=== PATIENT | male | born 1960 | race Caucasian/White ===

== ENCOUNTER 2024-01-22 14:20 | Emergency (ER) | payer OTHER, SELFPAY ==
[2024-01-22 14:24] VITALS: BP 137/89
--- NOTE | 2024-01-22 15:32 | ED.SKININJ ---
HPI-Injury
General
Chief Complaint: Skin Surface Trauma
Source: patient
Exam Limitations: none
Time Seen by Provider: 01/22/24 15:09
Nursing documentation reviewed up to this point in time: agreed with
History of Present Illness-Injury
Is this injury a work related problem?: Yes
Is pt an associate of [facility]?: No
Initial Injury comments:
Accidentally cut finger tips with saw. Has lacerations to left fingertips 2,3,4. Injury occurred just [employer]
Past History
Past History
ED Past Medical History: HTN, Hypercholesterolemia and Other
Social History
Tobacco: Former smoker
Personal:
Living: with family
Employment: Not employed
Review of Systems
Review of Systems
Allergies reviewed?: Yes
All Other Systems: ROS reviewed and negative except as documented in HPI and ROS
Constitutional: Reports no symptoms
Musculoskeletal: Reports joint pain (pain to fingertips 2,3,4)
Skin: Reports other (laceration to fingertips 2,3,4)
Neurological: Reports no symptoms
Psychiatric: Reports no symptoms
Skin Exam
Laceration
Left Distal Second Finger:
Length in cm: 1.5
Orientation: horizontal
Type of Laceration: simple
Any active bleeding?: no active bleeding
Distal skin color and temperature: normal-warm & good color
Normal distal neurovascular exam: Yes
Range of motion: full
Left Distal Third Finger:
Length in cm: 2
Orientation: horizontal
Type of Laceration: simple
Any active bleeding?: low grade venous oozing
Distal skin color and temperature: normal-warm & good color
Normal distal neurovascular exam: Yes
Range of motion: full
Left Distal Fourth Finger:
Length in cm: 1.5
Orientation: horizontal
Type of Laceration: simple
Any active bleeding?: no active bleeding
Distal skin color and temperature: normal-warm & good color
Normal distal neurovascular exam: Yes
Range of motion: full
Phy Exam
General Physical Exam
General Presentation: well appearing and mild distress
General age: appears stated age
General Skin: warm and dry
General Habitus: normal
General Mental: alert
Musculoskeletal Exam
Musculoskeletal Exam: full ROM and neuro vasc intact
Skin Exam
Skin Exam: normal color, warm/dry, no rash and other (Lacerations to left distal finger tips 2,3,4)
Psychiatric Exam
Psychiatric Exam: normal mood/affect
Course
Orders/Labs/Results
Orders:
Orders
01/22/24 15:31
Hand, Left 3 View [CR Hand - Left Min 3 Views] Urgent
Comment:
Reason For Exam: attn finger tips 2,3,4
01/22/24 16:54
Amoxicillin 875 mg/Clav 125 mg [Augmentin 875 mg/125 mg] 1 tablet PO NOW STA
Vital Signs
Initial and Last Documented VS:
Initial Vital Signs
Temp Pulse Resp BP Pulse Ox
98.4 F 75 18 137/89 98
01/22/24 14:24 01/22/24 14:24 01/22/24 14:24 01/22/24 14:24 01/22/24 14:24
Last Documented Vital Signs
Temp Pulse Resp BP Pulse Ox
98.4 F 75 18 137/89 98
01/22/24 14:24 01/22/24 14:24 01/22/24 16:03 01/22/24 14:24 01/22/24 14:24
Procedures
Laceration Closure
Left Distal Second Finger:
Status of Wound: clean
Description of Wound Edges: sharp and ragged
Preparation: cleaned with saline and cleaned with Betadine
Anesthesia: 1% Lidocaine and Digital-Regional
Revision/Debridement: routine- no revision
Wound exploration: extensive cleaning of contaminated wound
Type of Closure: single layer closure
Skin Closure Material: 5-0 prolene
Left Distal Third Finger:
Status of Wound: clean
Description of Wound Edges: ragged
Preparation: cleaned with saline and cleaned with Betadine
Anesthesia: 1% Lidocaine and Digital-Regional
Revision/Debridement: routine- no revision
Wound exploration: explored to base- no FB
Type of Closure: single layer closure
Skin Closure Material: 5-0 prolene
Left Distal Fourth Finger:
Status of Wound: clean
Description of Wound Edges: sharp
Preparation: cleaned with saline and cleaned with Betadine
Anesthesia: 1% Lidocaine and Digital-Regional
Revision/Debridement: routine- no revision
Wound exploration: explored to base- no FB
Type of Closure: single layer closure
Skin Closure Material: 5-0 prolene
*Radiology
Radiology exam reviewed: radiology read reviewed
*Pulse Oximetry
Patient hypoxic: no
*Critical Care Note
Total Time (30-74mins, 75-104mins- exclusive of procedures): Not Applicable
ED Attending Note
-
Portions of this chart may have been created with voice recognition software.� Occasional wrong word or��sound alike� substitutions may have occurred due to the inherent limitations of voice recognition software.
Discharge Plan
Departure
Patient Disposition: Home (Routine Discharge)
Date of Disposition: 01/22/24
Time of Disposition: 16:54
Patient with high blood pressure during this ER visit?: No
Condition: Good
Covid-19: Not Applicable
Discharge Problem:
Laceration of finger
Instructions: Laceration Repair With Stitches (DC)
Prescriptions:
New
amoxicillin-pot clavulanate 875-125 mg tablet
1 tab PO BID Qty: 20 0RF
hydrocodone-acetaminophen 5-325 mg tablet
1 tab PO Q4H PRN (Reason: Pain) Qty: 10 0RF
No Action
No Meds [No Current Medications]
0
Referrals:
Gabe Sahu MD [Active] - Call in 1-3 days for appt
Wendy Soto MD [Family Provider] - (Sutures can be removed in 7-10 days.)
Activity Restrictions/Additional Instructions:
Return to the emergency department immediately for fever/chills, increasing pain/redness/swelling to your fingers or for any further concerns,
Interventions
Interventions:
*Risk Screen - Suicide Last Done: 01/22/24 14:24
*General Assessment Last Done: 01/22/24 14:24
*Neglect/Abuse Screening Last Done: 01/22/24 14:24
ED-Skin Assessment Last Done: 01/22/24 16:07
Discharge Date and Time
Print Language: POLISH
[2024-01-22] MEDS: AUGMENTIN 875 MG/125 MG 1 TABLET PO (16:59)
== END 2024-01-22 17:20 | disposition home or self-care (01) ==
LOC: EMR 14:20
PROVIDERS: EMERGENCY PHYSICIAN Student in an Organized Health Care Education/Training Program; FAMILY PHYSICIAN Internal Medicine
DX: S61.221A Laceration with foreign body of left index finger without damage to nail, initial encounter (principal); S61.213A Laceration without foreign body of left middle finger without damage to nail, initial encounter; S61.215A Laceration without foreign body of left ring finger without damage to nail, initial encounter; W31.2XXA Contact with powered woodworking and forming machines, initial encounter; Y93.89 Activity, other specified; Y92.89 Other specified places as the place of occurrence of the external cause; Y99.0 Civilian activity done for income or pay; I10 Essential (primary) hypertension; E78.00 Pure hypercholesterolemia, unspecified; K57.90 Diverticulosis of intestine, part unspecified, without perforation or abscess without bleeding; Z87.891 Personal history of nicotine dependence
CPT/HCPCS: 12041; 99283; 12002; 73130